=== PATIENT | female | born 1940 | race Caucasian/White ===

== ENCOUNTER 2016-12-24 20:10 | Emergency (ER) | payer MEDICARE, OTHER ==
[~2016-12-24] VITALS: Ht 160 cm; Wt 54.4 kg
[2016-12-24] MEDS ORDERED: PRINIVIL10 MG (20:23)
[2016-12-24] MEDS ORDERED: ALEVE220 M1 PO (20:24)
[2016-12-24] MEDS ORDERED: PRILOSEC OTC20 MG PO (20:25)
[2016-12-24] MEDS ORDERED: SIMVASTATIN20 MG PO (20:25)
--- NOTE | 2016-12-25 22:28 | EKG ---
[facility] [address] [facility] [place], [place] [address] Signed Sinus rhythm with premature supraventricular complexes Left bundle branch block Abnormal ECG No previous ECGs available Confirmed by LISET MUÑOZ MD ([id number]) on 12/25/2016 10:28:10 PM Electronically Signed By: LISET MUÑOZ MD 12/25/16 2228 PATIENT NAME: ROSALES BONILLA Electrocardiogram DATE OF : 36 PHYSICIAN: LISET MUÑOZ MD REPORT #: [id number] REPORT IS CONFIDENTIAL AND NOT TO BE RELEASED WITHOUT AUTHORIZATION
== END 2016-12-24 22:00 | disposition home or self-care (01) ==
LOC: ED 20:10
DX: R55 Syncope and collapse (principal); I10 Essential (primary) hypertension; E78.5 Hyperlipidemia, unspecified; F17.200 Nicotine dependence, unspecified, uncomplicated; Z79.899 Other long term (current) drug therapy
CPT/HCPCS: 80053; 84484; 85025; 93005; 93010; 96360; 99284; J7030